=== PATIENT | male | born 1970 | race Two or more races ===

== ENCOUNTER 2022-12-15 15:34 | Outpatient (CLI) | payer OTHER | END 2022-12-15 15:48 | disposition home or self-care (01) | LOC: LAB 15:34 | PROVIDERS: ATTEND Internal Medicine Geriatric Medicine | DX: D68.9 Coagulation defect, unspecified (principal) ==

== ENCOUNTER 2022-12-16 12:30 | Inpatient (IN) | payer OTHER ==
[2022-12-25] MEDS ORDERED: NEURONTIN300 MG PO (09:09)
[2022-12-25] MEDS ORDERED: ACETAMINOPHEN500 M2 PO (09:09)
== END 2022-12-25 11:10 | disposition home or self-care (01) | DRG 331 ==
LOC: EDUNIT# 12:30 → O/R 12-22 05:20 → SURG 12-22 05:20 → SURH 12-22 07:00 → SURG 12-22 11:16 → SURH 12-22 12:30 → SURG 12-22 13:44
PROVIDERS: ADMIT Surgery; ATTEND Surgery
PROC: 0DBP4ZZ Excision of Rectum, Percutaneous Endoscopic Approach (ICD-10-PCS; 2022-12-22)
PROC: 07BC4ZZ Excision of Pelvis Lymphatic, Percutaneous Endoscopic Approach (ICD-10-PCS; 2022-12-22)
PROC: 0DJD8ZZ Inspection of Lower Intestinal Tract, Via Natural or Artificial Opening Endoscopic (ICD-10-PCS; 2022-12-22)
PROC: 0DTN4ZZ Resection of Sigmoid Colon, Percutaneous Endoscopic Approach (ICD-10-PCS; principal; 2022-12-22 07:00)
DX: C19 Malignant neoplasm of rectosigmoid junction (principal); R19.4 Change in bowel habit; R19.5 Other fecal abnormalities; Z20.822 Contact with and (suspected) exposure to COVID-19